=== PATIENT | male | born 1935 ===

== ENCOUNTER 2016-07-29 18:34 | Emergency (ER) | payer MEDICARE ==
--- NOTE | 2016-07-29 19:39 | C.PDOC ---
History Of Present Illness Patient presents to the ER with a complaint of nausea, vomiting, and abdominal pain since this morning. Patient denies eating any outside foods, fever, or chills. Time Seen by Provider: 07/29/16 19:39 Chief Complaint (Nursing): Dizziness/Lightheaded History Per: Patient History/Exam Limitations: no limitations Onset/Duration Of Symptoms: Hrs (Since AM) Current Symptoms Are (Timing): Still Present Activity At Onset Of Symptoms: Other (Not known) Severity: Moderate Pain Scale Rating Of: 4 Recent travel outside of the [place]: No Past Medical History Reviewed: Historical Data, Nursing Documentation, Vital Signs Vital Signs: Last Vital Signs Temp 97.5 F L 07/29/16 22:08 Pulse 78 07/29/16 22:08 Resp 13 07/29/16 22:08 BP 158/80 H 07/29/16 22:08 Pulse Ox 100 07/29/16 22:08 - Medical History PMH: Alzheimer's Disease, Benign Prostatic Hyperplasia, Diabetes, HTN, Hypercholesterolemia Surgical History: No Surg Hx Family History: States: No Known Family Hx - Social History Hx Tobacco Use: No Hx Alcohol Use: No Hx Substance Use: No - Immunization History Hx Tetanus Toxoid Vaccination: No Hx Influenza Vaccination: No Hx Pneumococcal Vaccination: No Review Of Systems Constitutional: Negative for: Fever, Chills Gastrointestinal: Positive for: Nausea, Vomiting, Abdominal Pain Physical Exam - Physical Exam Appears: Well, Non-toxic Skin: Warm, Dry Oral Mucosa: Moist Chest: Symmetrical, No Tenderness Cardiovascular: Rhythm Regular, No Murmur Respiratory: No Rales, No Rhonchi, No Wheezing Gastrointestinal/Abdominal: Soft, Tenderness (Diffusely ), Distention, Other ( Very tympanic to percussion) Neurological/Psych: Oriented x3, Other (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 A couple of air-fluid levels are noted in the colon with. equivocal enhancement of the wall of the distal transverse and proximal descending colon which. could reflect mild or early colitis. No abscess perforation or obstruction. Progress Note: EKG, blood work, and urinalysis ordered. Pepcid and IV fluids administered. Reevaluation Time: 22:21 Reassessment Condition: Improved Medical Decision Making Medical Decision Making: Upon provider reevaluation patient is feeling better, is medically stable, and requires no further treatment in the ED at this time. Patient will be discharged home with Rx for zofran and miralax. Counseling was provided and all questions were answered regarding diagnosis and need for follow up with the referred clinic. There is agreement to discharge plan. Return if symptoms persist or worsen. Disposition Counseled Patient/Family Regarding: Studies Performed, Diagnosis, Need For Followup, Rx Given - Disposition Referrals: Amaris Gracia MD [Medical Doctor] - Disposition: HOME/ ROUTINE Disposition Time: 19:39 Condition: FAIR Additional Instructions: Please return if symptoms recur Prescriptions: Ondansetron ODT [Zofran ODT] 1 odt PO BID PRN #10 odt PRN Reason: Nausea/Vomiting Polyethylene Glycol 3350 [Miralax] 17 gm PO DAILY #270 ml Instructions: Abdominal Pain (ED), Gas and Bloating (ED), Constipation (DC), Hyponatremia (DC) Print Language: MOHAWK - Clinical Impression Clinical Impression: Abdominal pain, Constipation, Nausea & vomiting - Scribe Statement The provider has reviewed the documentation as recorded by the Scribbrady Knapp All medical record entries made by the Luis Alfredoibbrady were at my direction and personally dictated by me. I have reviewed the chart and agree that the record accurately reflects my personal performance of the history, physical exam, medical decision making, and the department course for this patient. I have also personally directed, reviewed, and agree with the discharge instructions and disposition.
[2016-07-29] MEDS ORDERED: Sodium Chloride 0.9% 1,000 ML IV ONE (19:43)
[2016-07-29] MEDS ORDERED: Sodium Chloride 0.9% 1,000 ML ONE (19:52)
[2016-07-29 20:03] LABS: BASO % 0.2 % (0.0-2.0); EOS # 0.1 K/uL (0.0-0.7); EOS % 1.2 % (0.0-4.0); HEMATOCRIT 25.8 % (35.0-51.0); LYMPH # 1.6 K/uL (1.0-4.3); LYMPH % 17.7 % (20.0-40.0); MEAN CELL VOLUME 71.3 fL (80.0-94.0); MEAN CORPUSCULAR HEMOGLOBIN 23.3 pg (27.0-31.0); MEAN CORPUSCULAR HGB CONC 32.7 g/dL (33.0-37.0); MEAN PLATELET VOLUME 7.2 fL (7.2-11.7); MONO # 0.9 K/uL (0.0-0.8); NRBC % 0.1 % (0.0-2.0); RED CELL DISTRIBUTION WIDTH 19.3 % (11.5-14.5); WHITE BLOOD COUNT 8.9 K/uL (4.8-10.8)
[2016-07-29 20:13] LABS: INR 1.2
[2016-07-29 20:20] LABS: CHLORIDE 79 mmol/L (98-107); POTASSIUM 4.1 mmol/L (3.6-5.2); SODIUM 121 mmol/L (132-148)
[2016-07-29 20:22] LABS: AST/SGOT 27 U/L (17-59); BILIRUBIN,TOTAL 0.5 mg/dL (0.2-1.3); CARBON DIOXIDE 26 mmol/L (22-30); GFR AFRICAN-AMERICAN > 60
[2016-07-29 20:23] LABS: ALB/GLOB RATIO 1.6 (1.0-2.1); ALKALINE PHOSPHATASE 49 U/L (38-126); ALT/SGPT 28 U/L (21-72); BLOOD UREA NITROGEN 10 mg/dL (9-20); CALCIUM 8.7 mg/dl (8.6-10.4); GLUCOSE,RANDOM 162 mg/dL (75-110); TOTAL PROTEIN 8.1 g/dL (6.3-8.3)
[2016-07-29] MEDS ORDERED: Iohexol 300 100 ML IJ ONE (21:23)
[2016-07-29 22:08] VITALS: BP 158/80; PULSE 78; RESP 13; TEMP 97.5
[2016-07-29 22:23] VITALS: O2SAT 98
--- NOTE | 2016-07-30 07:58 | CT ---
PROCEDURE: CT Abdomen and Pelvis with contrast HISTORY: abdominal pain COMPARISON: None. TECHNIQUE: Contrast dose: 100 cc of Omnipaque 300. Axial and reformatted coronal and sagittal CT images of the abdomen and pelvis were obtained after IV contrast administration. Radiation dose: Total exam DLP = 441.92 mGy-cm. This CT exam was performed using one or more of the following dose reduction techniques: Automated exposure control, adjustment of the mA and/or kV according to patient size, and/or use of iterative reconstruction technique. FINDINGS: LOWER THORAX: Small pleural base opacity seen at the left lung base may represents lung nodule or small atelectasis measures 10 millimeter. No evidence of acute pathology in the lungs. Mild cardiomegaly is seen. LIVER: Mild hepatomegaly and fatty liver infiltration are noted. The portal vein is patent. GALLBLADDER AND BILE DUCTS: Unremarkable. PANCREAS: Unremarkable. No gross lesion or ductal dilatation. Mild atrophy changes and fatty infiltration are noted. SPLEEN: Unremarkable. ADRENALS: Unremarkable. No mass. KIDNEYS AND URETERS: Unremarkable. No hydronephrosis. No solid mass. VASCULATURE: Unremarkable. No aortic aneurysm. BOWEL: No evidence of small bowel obstruction. No obstruction. No gross mural thickening. Amdv-zs-hmayarup constipation. APPENDIX: Normal appendix. PERITONEUM: Unremarkable. No free fluid. No free air. LYMPH NODES: Unremarkable. No enlarged lymph nodes. BLADDER: Unremarkable. REPRODUCTIVE: Unremarkable. BONES: No acute fracture. OTHER FINDINGS: None. IMPRESSION: Rrur-sa-oobrsjof constipation. No CT evidence of cholecystitis pancreatitis or appendicitis. No evidence of abscess formation or fluid collection in the abdomen and pelvis. Preliminary report was submitted by [facility].
--- NOTE | 2016-08-02 10:07 | CARD ---
APPROVED REPORT EKG Measurement Heart [id number] <Conclusion> Normal sinus rhythm Normal ECG
== END 2016-07-29 22:44 | disposition home or self-care (01) ==
LOC: C.ER 18:34
DX: K59.00 Constipation, unspecified (principal); R10.9 Unspecified abdominal pain; R11.2 Nausea with vomiting, unspecified
CPT/HCPCS: 74177; 80053; 83690; 85025; 85610; 85730; 93005; 96361; 96374; 99285; J7040; Q9967

== ENCOUNTER 2016-08-06 17:51 | Emergency (ER) | payer MEDICARE ==
--- NOTE | 2016-08-06 18:33 | C.PDOC ---
History Of Present Illness A 81 year old male, with a history of Alzheimer's, was found on the street wandering. As per daughter who is at bedside, patient has a long history of Alzheimer's. At this time, patient is smiling and denies any complaints. Patient is at baseline and daughter is requesting to be taken home without any workup in the ER. Time Seen by Provider: 08/06/16 18:23 Chief Complaint (Nursing): Altered Mental Status History Per: Family (Daughter) History/Exam Limitations: None Onset/Duration Of Symptoms: Hrs Current Symptoms Are (Timing): Still Present Usual Baseline: Unknown Exacerbating Factor(s): Unknown Severity: None Recent travel outside of the [place]: No Past Medical History Reviewed: Historical Data, Nursing Documentation, Vital Signs Vital Signs: Last Vital Signs Temp Pulse 87 08/06/16 18:37 Resp 18 08/06/16 18:37 BP 122/58 L 08/06/16 18:37 Pulse Ox 100 08/06/16 18:37 - Medical History PMH: Alzheimer's Disease, Benign Prostatic Hyperplasia, Diabetes, HTN, Hypercholesterolemia Family History: States: Unknown Family Hx - Social History Hx Tobacco Use: No Hx Alcohol Use: No Hx Substance Use: No - Immunization History Hx Tetanus Toxoid Vaccination: No Hx Influenza Vaccination: No Hx Pneumococcal Vaccination: No Review Of Systems Except As Marked, All Systems Reviewed And Found Negative. Constitutional: Negative for: Fever, Chills Gastrointestinal: Negative for: Nausea, Vomiting, Diarrhea Physical Exam - Physical Exam Appears: Non-toxic, No Acute Distress Skin: Warm, Dry, No Rash Head: Atraumatic, Normacephalic Eye(s): bilateral: Normal Inspection Oral Mucosa: Moist Cardiovascular: Rhythm Regular Respiratory: Normal Breath Sounds, No Rales, No Rhonchi, No Wheezing Gastrointestinal/Abdominal: Soft, No Tenderness Extremity: Normal ROM, No Tenderness Disposition - Disposition Disposition: HOME/ ROUTINE Disposition Time: 18:31 Condition: STABLE Additional Instructions: please follow up with your doctor. return to er with worsening symptoms or concerns. Instructions: Altered Mental Status (GEN) - Clinical Impression Clinical Impression: Alzheimer disease - Scribe Statement The provider has reviewed the documentation as recorded by the Scribe Santos Real All medical record entries made by the Scribe were at my direction and personally dictated by me. I have reviewed the chart and agree that the record accurately reflects my personal performance of the history, physical exam, medical decision making, and the department course for this patient. I have also personally directed, reviewed, and agree with the discharge instructions and disposition.
[2016-08-06 18:39] VITALS: BP 122/58; PULSE 87; RESP 18; O2SAT 100
== END 2016-08-06 18:42 | disposition home or self-care (01) ==
LOC: C.ER 17:51
DX: G30.9 Alzheimer's disease, unspecified (principal); F02.80 Dementia in other diseases classified elsewhere, unspecified severity, without behavioral disturbance, psychotic disturbance, mood disturbance, and anxiety

== ENCOUNTER 2017-01-04 19:03 | Emergency (ER) | payer MEDICARE ==
[2017-01-04 19:17] VITALS: BP 160/80; PULSE 92; RESP 18; TEMP 97.6; O2SAT 96
--- NOTE | 2017-01-04 19:17 | C.PDOC ---
History Of Present Illness 81 y/o M c PMHx Alzheimer's dementia found wandering streets and brought to ED. Patient states he got lost, denies any pain, dyspnea, or any other complaint. Time Seen by Provider: 01/04/17 19:15 Chief Complaint (Nursing): Medical Clearance Past Medical History Vital Signs: Last Vital Signs Temp 97.6 F 01/04/17 19:08 Pulse 92 H 01/04/17 19:08 Resp 18 01/04/17 19:08 BP 160/80 H 01/04/17 19:08 Pulse Ox 96 01/04/17 19:17 - Medical History PMH: Alzheimer's Disease, Benign Prostatic Hyperplasia, Diabetes, HTN, Hypercholesterolemia Family History: States: Unknown Family Hx - Social History Hx Tobacco Use: No Hx Alcohol Use: No Hx Substance Use: No - Immunization History Hx Tetanus Toxoid Vaccination: No Hx Influenza Vaccination: No Hx Pneumococcal Vaccination: No Review Of Systems Except As Marked, All Systems Reviewed And Found Negative. Constitutional: Negative for: Fever Cardiovascular: Negative for: Chest Pain Physical Exam - Physical Exam Appears: No Acute Distress Skin: Normal Color Head: Atraumatic, Normacephalic Oral Mucosa: Moist Neck: Supple Respiratory: No Accessory Muscle Use Gastrointestinal/Abdominal: Soft Back: No Vertebral Tenderness Gait: Steady ED Course And Treatment O2 Sat by Pulse Oximetry: 96 Medical Decision Making Medical Decision Making: Family arrived to ED and took patient home. Disposition - Disposition Disposition: HOME/ ROUTINE Disposition Time: 19:17 Condition: STABLE Instructions: Dementia (ED) Forms: [facility] (Lithuanian) - Clinical Impression Clinical Impression: Alzheimer disease
== END 2017-01-04 19:25 | disposition home or self-care (01) ==
LOC: C.ER 19:03
DX: G30.9 Alzheimer's disease, unspecified (principal); F02.80 Dementia in other diseases classified elsewhere, unspecified severity, without behavioral disturbance, psychotic disturbance, mood disturbance, and anxiety

== ENCOUNTER 2018-08-12 14:43 | Emergency (ER) | payer MEDICARE ==
[2018-08-12] MEDS ORDERED: Tetanus/Diphtheria Toxoids 0.5 ml Syringe IM ONE ×2 (15:04→15:24)
--- NOTE | 2018-08-12 15:04 | C.PDOC ---
History Of Present Illness 83 y.o. male presents for evaluation of LT ankle injury prior to arrival. Pt states accidentally falling and twisting his ankle. Pt uses cane, was not using a cane at the time of injury. Denies other injuries, numbness, tingling, or any other associated symptoms. L ANKLE INJURY REFINISHER. ACCID FELL AND TWISTED ANKLE. USES CANE BUT NOT AT THE TIME OF INJURY. NO OTHER ASSOC INJ OR SYMPTOMS EXAM NAD NONTOXIC HEENT ATRAUM EXT L ANKLE LAT MALL MILD SWELL NO GROSS DEFORM SKIN +L LAT MALL ABRASION MIN ACTIVE BLEED NEURO NO FOCAL DEF Time Seen by Provider: 08/12/18 14:46 History Per: Patient History/Exam Limitations: no limitations Current Symptoms Are (Timing): Still Present Recent travel outside of the [place]: No - Ankle/Foot Description Of Injury: Fell, Twisted Past Medical History Reviewed: Historical Data, Nursing Documentation, Vital Signs - Medical History PMH: Alzheimer's Disease, Benign Prostatic Hyperplasia, Diabetes, HTN, Hypercholesterolemia Family History: States: Unknown Family Hx - Social History Hx Tobacco Use: No Hx Alcohol Use: No Hx Substance Use: No - Immunization History Hx Tetanus Toxoid Vaccination: No Hx Influenza Vaccination: No Hx Pneumococcal Vaccination: No Review Of Systems Except As Marked, All Systems Reviewed And Found Negative. Musculoskeletal: Positive for: Other (left ankle injury. ) Neurological: Negative for: Weakness, Numbness, Incoordination Physical Exam - Physical Exam Appears: Non-toxic, No Acute Distress Skin: Warm, Dry, Other (+LT LATERAL MALLEOLUS ABRASION, MIN ACTIVE BLEED) Head: Atraumatic, Normacephalic Eye(s): bilateral: Normal Inspection Nose: Normal Oral Mucosa: Moist Throat: Normal, No Erythema, No Exudate Neck: Normal ROM, Supple Chest: Symmetrical, No Deformity Cardiovascular: Rhythm Regular, No Murmur Respiratory: Normal Breath Sounds, No Rales, No Rhonchi, No Wheezing Gastrointestinal/Abdominal: Normal Exam, Soft, No Tenderness Extremity: No Deformity (NO GROSS DEFORMITY.), Swelling (LT ANKLE LATERAL MALLEOLUS MILD SWELLING.), Other Neurological/Psych: Oriented x3, Normal Speech, Normal Cognition ED Course And Treatment O2 Sat by Pulse Oximetry: 97 (RA) Pulse Ox Interpretation: Normal - Other Rad L ANKLE X-Ray: Interpreted by Me (NEG) Medical Decision Making Medical Decision Making: Initial plan: -Ibuprofen -Tenivac -Tylenol -LT Ankle Xray Progress/Update: Pt stable for discharge home. Prescribed Motrin and Tylenol. Disposition Counseled Patient/Family Regarding: Studies Performed, Diagnosis, Need For Followup, Rx Given - Disposition Referrals: Aleksandra Gregory DPM [Staff Provider] - Disposition: HOME/ ROUTINE Disposition Time: 15:21 Condition: IMPROVED Prescriptions: Acetaminophen [Tylenol Extra Strength] 2 tab PO Q6 #30 tablet Ibuprofen [Motrin] 600 mg PO Q6 #30 tab Instructions: Ankle Sprain (DC) Print Language: DIVEHI - Clinical Impression Clinical Impression: Ankle sprain, Abrasion - Scribe Statement The provider has reviewed the documentation as recorded by the Scribe (Renetta Montes) Provider Attestation: All medical record entries made by the Scribe were at my direction and personally dictated by me. I have reviewed the chart and agree that the record accurately reflects my personal performance of the history, physical exam, medical decision making, and the department course for this patient. I have also personally directed, reviewed, and agree with the discharge instructions and disposition.
[2018-08-12 15:05] VITALS: O2SAT 97
[2018-08-12 16:28] VITALS: BP 160/72; PULSE 76; RESP 17; TEMP 98.2
--- NOTE | 2018-08-12 22:20 | RAD ---
Date of service: 08/12/2018 PROCEDURE: Left Ankle Radiographs. HISTORY: trauma COMPARISON: None available. TECHNIQUE: 3 views obtained. FINDINGS: BONES: Normal. No fracture. JOINTS: Normal. No osteoarthritis. Ankle mortise maintained. Talar dome intact SOFT TISSUES: Soft tissue calcification noted likely vascular OTHER FINDINGS: None. IMPRESSION: Dense of acute fracture. No evidence of destructive bony lesion.
== END 2018-08-12 16:29 | disposition home or self-care (01) ==
LOC: C.ER 14:43
DX: S93.402A Sprain of unspecified ligament of left ankle, initial encounter (principal); S90.512A Abrasion, left ankle, initial encounter; W18.30XA Fall on same level, unspecified, initial encounter